=== PATIENT | male | born 1950 | race Caucasian/White ===

== ENCOUNTER → 2016-10-31 | Day surgery (SDC) | payer BC ==
[~2016-10-31] MED LIST: BUPIVACAINE/EPINEPHRINE 0.25% 50 ML VIAL ONE; KETOROLAC TROMETHAMINE 30 MG/ML (IVP) VIAL IV PUSH ONE; LACTATED RINGER'S 1000 ML INJ 1,000 ML ONE; MIDAZOLAM HCL 2 MG/2 ML VIAL ONE; ONDANSETRON HCL 4 MG/2 ML VIAL IV PUSH ONE; PROPOFOL 200 MG/20 ML AMP IV ONE; ceFAZolin 2 GM PREMIX 50 ML ONE
--- NOTE | 2016-10-31 19:08 | TN ---
cc: DANIELE GUSTAFSON M.D. DATE OF SURGERY 10/31/2016 PREOPERATIVE DIAGNOSIS Right inguinal hernia. POSTOPERATIVE DIAGNOSIS Right inguinal hernia. PROCEDURE 1. Open repair right inguinal hernia with mesh. 2. Excision of spermatic cord lipoma. SURGEON Dr. Daniele Gustafson ANESTHESIA General with laryngeal mask. INDICATIONS A pleasant 65-year-old gentleman with progressive increased in size of a right inguinal hernia and some associated symptoms of discomfort. He is a fairly active person and would like to return to normal activities and desirous of operative repair. INTRAOPERATIVE FINDINGS Indirect inguinal hernia sac. 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 ESTIMATED BLOOD LOSS Less than 5 ml. This procedure was assisted by my nurse practitioner. The skill set of an MASTER MOTORCYCLE TECHNICIAN was medically necessary to facilitate adequate visualization and efficiency in the operating room. The assembler surgical garment was at the back table during the procedure while providing appropriate instrumentation while the nurse practitioner was directly assisting me through the entirety of the procedure. DESCRIPTION OF PROCEDURE IN DETAIL The patient identified as Royer Velazquez and taken to the operating room and placed in the supine position. Sequential compression devices were placed on bilateral lower extremities. Following induction of adequate general anesthesia with laryngeal mass, the patient's right groin was prepped and draped in the usual sterile fashion with Betadine. A time-out procedure was performed. Following completion of time-out procedure to everyone's satisfaction within the room, a proposed right groin incision was made with a marking pen, infiltrated with local anesthetic. Field block of local anesthetic was performed at the medial aspect of the anterior superior iliac spine. The incision was carried out with scalpel and hemostasis controlled with electrocautery. Dissection continued posteriorly through subcutaneous fatty tissue, Ousmane fascia, down to level of the external oblique fascia. More local anesthetic was placed beneath the external oblique fascial fibers and they were opened in direction with scalpel Metzenbaum scissor. Underlying ilioinguinal and iliohypogastric nerve branches were identified and avoided. Spermatic cord and its contents were from surrounding tissues at the level of the pubic tubercle and isolated with a [place] drain. Anterior cremasteric fibers were gently divided with electrocautery allowing for identification of three separate areas of herniated preperitoneal fatty tissue consistent with spermatic cord lipoma. All three were from the spermatic cord structures using blunt dissection and suture ligated at the base with 2-0 Vicryl suture ligatures and redundant fatty tissue amputated. The anteromedial surface examined. There was an obvious indirect inguinal hernia sac which was relatively small. It was from surrounding cord structures and the sac was opened. There were no incarcerated contents. It was suture-ligated at its base with 2-0 Vicryl suture ligature and redundant hernia sac amputated with electrocautery. The inguinal floor was examined. It was intact. There was no evidence of direct or femoral hernia. From a 3 x 6 inch piece of Atrium ProLite mesh appropriate size mesh was cut for this patient and sutured in position with interrupted 0 Ethibond sutures. Sutures were placed above and below the pubic tubercle and [place]'s ligament shelving edge of the inguinal ligament inferiorly and laterally into the internal oblique fascia superiorly and medially. Care was taken to avoid the iliohypogastric nerve superior and medially. Lateral slit was cut into the mesh to allow for passage of spermatic cord. Tails were tucked beneath the external oblique fascia. A single 0 Ethibond suture was placed lateral to the spermatic cord. Care was taken not to strangle the spermatic cord. The wound was irrigated with saline. There was no evidence of bleeding. Local anesthetic was placed within the operative field. The external oblique fascia was closed with running 2-0 Vicryl suture taking care to avoid the underlying ilioinguinal and iliohypogastric nerves. Single 3-0 Vicryl was placed in Ousmane fascia. The skin was approximated with running 4-0 Monocryl subcuticular suture. Dressings were applied with Mastisol and one-half inch brown Steri-Strips, gauze and Tegaderm. The patient tolerated the procedure without apparent complication. Sponge, needle and instrument counts were correct at the end of the case. MD CHAR Gong/NORY /5:25 PM /6:51 PM
== END | disposition home or self-care (01) ==
LOC: ESDC 09:36
PROVIDERS: ATTEND Surgery Trauma Surgery
DX: K40.90 Unilateral inguinal hernia, without obstruction or gangrene, not specified as recurrent (principal); D17.6 Benign lipomatous neoplasm of spermatic cord
CPT/HCPCS: 00830; 49505; 55520; C1781; J0690; J1885; J2250; J2405; J3010; J7120